=== PATIENT | female | born 1990 | race Caucasian/White ===

== ENCOUNTER 2017-01-21 14:10 | Emergency (ER) | payer SELFPAY ==
[2017-01-21 14:15] VITALS: BP 101/62
[2017-01-21] MEDS ORDERED: IPRATROPIUM/ALBUTEROL 0.5-2.5 MG/3 ML AMPUL NEB ONE (14:41)
[2017-01-21] MEDS ORDERED: METHYLPREDNISOLONE INJ 125 MG/2 ML SDV IM ONE (14:41)
--- NOTE | 2017-01-21 14:47 | ER Document Report ---
ED Respiratory Problem - General Chief Complaint: Asthma Exacerbation Stated Complaint: COUGH Time Seen by Provider: 01/21/17 14:41 Mode of Arrival: Ambulatory Information source: Patient Notes: 26-year-old female presents to ED for cough congestion mucus wheezing with a history of asthma. She states she has been using her albuterol inhaler with no relief. She states it hurts to breathe. She states she has been wheezing at home but no actual wheezing noted in the emergency room. Patient denies any fever. She states she is concerned for pneumonia because she has a history of pneumonia. TRAVEL OUTSIDE OF THE [place] IN LAST 30 DAYS: No - HPI Patient complains to provider of: Asthma, Cough, Hurts to breath Onset: Other - Several days Duration: Continuous Initiating Event: URI, Other - History of asthma Quality of pain: Other - Type Severity: Moderate Pain Level: 3 Cough: Nonproductive Sputum amount: None At home treatment: Bronchodilators Associated symptoms: Chest pain/discomfort, Cough, PND, Runny nose, Sinus pain/ pressure, Short of breath, Other - tightness in lungs Similar symptoms previously: Yes Recently seen / treated by doctor: No - Related Data Allergies/Adverse Reactions: No Known Allergies Allergy (Verified 01/21/17 14:11) Home Medications: Current Home Medications Albuterol Sulfate [Albuterol Sulfate 2.5mg/3 mL] 1 vial IH Q4 PRN 01/21/17 [ History] Albuterol Sulfate [Ventolin 0.042% Neb 1.25 mg/3 ml Ampul] 1 vial NEB Q4 PRN 06/04 [History] Past Medical History - General Information source: Patient - Social History Smoking Status: Current Every Day Smoker Cigarette use (# per day): Yes - 1/2 ppd Chew tobacco use (# tins/day): No Smoking Education Provided: Yes - less than 1 min Frequency of alcohol use: None Drug Abuse: None Lives with: Family Family History: Reviewed & Not Pertinent Patient has suicidal ideation: No Patient has homicidal ideation: No - Past Medical History Cardiac Medical History: Reports: None Pulmonary Medical History: Reports: Hx Asthma EENT Medical History: Reports: None Neurological Medical History: Reports: None Endocrine Medical History: Reports: None Renal/ Medical History: Reports: None Malignancy Medical History: Reports: None GI Medical History: Reports: None Musculoskeltal Medical History: Reports None Skin Medical History: Reports None Psychiatric Medical History: Reports: None Traumatic Medical History: Reports: None Infectious Medical History: Reports: None Surgical Hx: Negative Past Surgical History: Reports: None - Immunizations Immunizations up to date: Yes Hx Diphtheria, Pertussis, Tetanus Vaccination: Yes Review of Systems - Review of Systems Constitutional: No symptoms reported EENT: Nose discharge, Sinus discharge Cardiovascular: No symptoms reported Respiratory: Cough, Short of breath, Wheezing Gastrointestinal: No symptoms reported Genitourinary: No symptoms reported Female Genitourinary: No symptoms reported Musculoskeletal: No symptoms reported Skin: No symptoms reported Hematologic/Lymphatic: No symptoms reported Neurological/Psychological: No symptoms reported -: Yes All other systems reviewed and negative Physical Exam - Vital signs Vitals: Temp Pulse Resp BP Pulse Ox 98.9 F 90 13 101/62 96 01/21/17 14:14 01/21/17 14:14 01/21/17 14:14 01/21/17 14:14 01/21/17 14:14 Interpretation: Normal - General General appearance: Appears well, Alert - HEENT Head: Normocephalic, Atraumatic Eyes: Normal Pupils: PERRL Ears: Normal External canal: Normal Tympanic membrane: Normal Sinus: Normal Nasal: Swelling, Clear rhinorrhea Mouth/Lips: Normal Mucous membranes: Normal Pharynx: Post nasal drainage Neck: Normal - Respiratory Respiratory status: No respiratory distress Chest status: Nontender Breath sounds: Normal Chest palpation: Normal - Cardiovascular Rhythm: Regular Heart sounds: Normal auscultation Murmur: No - Abdominal Inspection: Normal Distension: No distension Bowel sounds: Normal Tenderness: Nontender Organomegaly: No organomegaly - Back Back: Normal, Nontender - Extremities General upper extremity: Normal inspection, Nontender, Normal color, Normal ROM , Normal temperature General lower extremity: Normal inspection, Nontender, Normal color, Normal ROM , Normal temperature, Normal weight bearing. No: Clarice's sign - Neurological Neuro grossly intact: Yes Cognition: Normal Orientation: AAOx4 Savage Coma Scale Eye Opening: Spontaneous Marty Coma Scale Verbal: Oriented Marty Coma Scale Motor: Obeys Commands Savage Coma Scale Total: 15 Speech: Normal Motor strength normal: LUE, RUE, LLE, RLE Sensory: Normal - Psychological Associated symptoms: Normal affect, Normal mood - Skin Skin Temperature: Warm Skin Moisture: Dry Skin Color: Normal Course - Vital Signs Vital signs: Temp Pulse Resp BP Pulse Ox 98.9 F 90 13 101/62 96 01/21/17 14:14 01/21/17 14:14 01/21/17 14:14 01/21/17 14:14 01/21/17 14:14 - Diagnostic Test Radiology reviewed: Image reviewed, Reports reviewed Discharge - Discharge Clinical Impression: URI (upper respiratory infection) Qualifiers: URI type: unspecified URI Qualified Code(s): J06.9 - Acute upper respiratory infection, unspecified Asthma attack Qualifiers: Asthma severity: mild Asthma persistence: intermittent Qualified Code(s): J45.21 - Mild intermittent asthma with (acute) exacerbation Condition: Stable Disposition: HOME, SELF-CARE Instructions: Family Physicians / Practices Additional Instructions: ASTHMA: You have been diagnosed as having asthma. This is a condition where there is episodic tightness in the bronchial tubes. Allergies, infections, and polluted or cold air may be contributing factors. Emergency treatment of a severe asthma attack may include adrenaline shots , or bronchodilator aerosol. You may feel lightheaded, have a decreased exercise tolerance and a rapid pulse for an hour or two. Rest and get plenty of fluids. Home treatment of asthma requires bronchodilator drugs. These can be administered by injection, inhalation, or by mouth. Antibiotics and corticosteroids may be required for some patients. You should avoid chemical fumes, dusts, pollens, and exercising in very cold or dry air. If you smoke, stop!! If you develop a fever, increased wheezing, chest pain, or severe shortness of breath, you should contact the doctor immediately. UPPER RESPIRATORY ILLNESS: You have a viral infection of the respiratory passages -- a "cold." This common infection causes nasal congestion, drainage, and often sore throat and cough. It is highly contagious. The disease usually lasts about 10 to 14 days. There is no "cure" for the viral infection -- it must run its course. If there is a complication, such as bacterial infection in the nose, sinuses, middle ear, or bronchial tubes, antibiotics may be required. The antibiotics won't affect the virus. Drink plenty of fluids. A humidifier may help. An expectorant medication or decongestant may make you more comfortable. Use acetaminophen or ibuprofen for fever or aches. See the doctor if fever persists over two days, if there is any significant worsening of your symptoms, or if you simply fail to improve as expected. STEROID MEDICATION: You have been given an injection of or oral medicine of the cortisone/ steroid class. This medication is used to control inflammation or allergy. Servando t is usually only given for a short period of time, until the acute process subsides. There are usually no side effects from short-term use of cortisone-like medications. Some persons feel an increased sense of well-being and are not sleepy at bedtime. Long-term use of cortisone medications is best avoided, unless required for a severe condition. If your condition does not remit, or relapses after the course of corticosteroid medication, you should consult your physician. INHALED BRONCHODILATORS: You have received treatment(s) of and/or prescription for an inhaled bronchodilator -- a medication which stimulates the airways in the lung to dilate. This improves the flow of air in asthma, bronchitis, and emphysema. These medicines have some similarity to adrenaline, and can cause similar side effects: shakiness, racing heart, and a sense of nervousness. These side effects decrease with time. Contact your doctor if these side effects are severe. Do not over-use the medicine. Too-frequent use of the inhaler may make it ineffective. Call your doctor if the inhaler is not controlling your symptoms at the prescribed doses. SMOKING: If you smoke, you should stop smoking. The tar and chemicals in cigarette smoke are harmful. Smoking has been shown to cause: emphysema chronic bronchitis lung cancer mouth and throat cancer stomach and pancreas cancer premature aging defects In addition, smoking increases ear and lung infections in children of smokers. USE OF ACETAMINOPHEN (Tylenol): Acetaminophen may be taken for pain relief or fever control. It's much safer than aspirin, offering a wider range of "safe" dosages. It is safe during . Some brand names are Tylenol, Panadol, Datril, Anacin 3, Tempra, and Liquiprin. Acetaminophen can be repeated every four hours. The following are maximum recommended dosages: WEIGHT Dose Drops Elixir Chewable( 80mg) (LBS.) drprs=droppers tsp=teaspoon 6 40 mg 0.4 ml (1/2) 6-11 80 mg 0.8 ml (full) tsp 1 tab 12-16 120 mg 1 1/2 drprs 3/4 tsp 1 1/2 tabs 17-23 160 mg 2 drprs 1 tsp 2 tabs 24-30 240 mg 3 drprs 1 1/2 tsp 3 tabs 30-35 320 mg 2 tsp 4 tabs 36-41 360 mg 2 1/4 tsp 4 1/2 tabs 42-47 400 mg 2 1/2 tsp 5 tabs 48-53 480 mg 3 tsp 6 tabs 54-59 520 mg 3 1/4 tsp 6 1/2 tabs 60-64 560 mg 3 1/2 tsp 7 tabs 65-70 600 mg 3 3/4 tsp 7 1/2 tabs 71-76 640 mg 4 tsp 8 tabs 77-82 720 mg 4 1/2 tsp 9 tabs 83-88 800 mg 5 tsp 10 tabs >89 pounds or adults 650 mg to 900 mg Acetaminophen can be repeated every four hours. Maximum dose not to exceed 4000 mg a day. These maximum recommended dosages are slightly higher than the dosages written on the product container, but these dosages are very safe and below the toxic dosage for acetaminophen. FOLLOW-UP CARE: If you have been referred to a physician for follow-up care, call the physician s office for an appointment as you were instructed or within the next two days. If you experience worsening or a significant change in your symptoms, notify the physician immediately or return to the Emergency Department at any time for re-evaluation. Prescriptions: Prednisone [Sterapred Ds] 1 pkg PO ASDIR PRN 12 Days [email or web address] PRN Reason: Forms: Smoking Cessation Education
--- NOTE | 2017-01-21 15:27 | RADIOLOGY REPORT (SQ) ---
EXAM DESCRIPTION: CHEST PA/LAT COMPLETED DATE/TIME: 01/21/2017 3:09 pm REASON FOR STUDY: cough congestion tightness to lungs COMPARISON: None. EXAM PARAMETERS: NUMBER OF VIEWS: two views TECHNIQUE: Digital Frontal and Lateral radiographic views of the chest acquired. RADIATION DOSE: NA LIMITATIONS: none FINDINGS: LUNGS AND PLEURA: No opacities, masses or pneumothorax. No pleural effusion. MEDIASTINUM AND HILAR STRUCTURES: No masses or contour abnormalities. HEART AND VASCULAR STRUCTURES: Heart normal size. No evidence for failure. BONES: Lower thoracic degenerative disc disease. HARDWARE: None in the chest. OTHER: No other significant finding. IMPRESSION: NO SIGNIFICANT RADIOGRAPHIC FINDING IN THE CHEST. TECHNICAL DOCUMENTATION: JOB ID: [id number] [employer]- All Rights Reserved
== END 2017-01-21 16:09 | disposition home or self-care (01) ==
LOC: ER 14:10
DX: J06.9 Acute upper respiratory infection, unspecified (principal); J45.21 Mild intermittent asthma with (acute) exacerbation; F17.210 Nicotine dependence, cigarettes, uncomplicated
CPT/HCPCS: 94640; 99284; 96372; 71020; J2930; J7620

== ENCOUNTER 2017-03-09 20:32 | Emergency (ER) | payer SELFPAY ==
[2017-03-09 21:09] VITALS: BP 110/76
== END 2017-03-09 21:59 | disposition left against medical advice (07) ==
LOC: ER 20:32
DX: Z53.21 Procedure and treatment not carried out due to patient leaving prior to being seen by health care provider (principal)

== ENCOUNTER 2017-07-08 19:17 | Emergency (ER) | payer SELFPAY | END 2017-07-08 21:20 | disposition left against medical advice (07) | LOC: ER 19:17 | DX: Z53.21 Procedure and treatment not carried out due to patient leaving prior to being seen by health care provider (principal) ==

== ENCOUNTER 2018-10-03 16:57 | Outpatient (CLI) | payer MEDICAID ==
[2018-10-03 17:37] LABS: APPEARANCE,URINE CLEAR; BILIRUBIN,URINE NEGATIVE (NEGATIVE); COLOR,URINE YELLOW; GLUCOSE, URINE NEGATIVE (NEGATIVE); KETONES,URINE NEGATIVE (NEGATIVE); LEUKOCYTE ESTERASE,URINE NEGATIVE (NEGATIVE); NITRITE,URINE NEGATIVE (NEGATIVE); PROTEIN,URINE NEGATIVE (NEGATIVE); URINE SPECIFIC GRAVITY 1.006; UROBILINOGEN,URINE NEGATIVE mg/dL (<2.0)
[2018-10-03 17:50] LABS: URINE AMPHETAMINES SCREEN NEGATIVE; URINE BARBITURATES SCREEN NEGATIVE; URINE BENZODIAZEPINES SCREEN NEGATIVE; URINE COCAINE SCREEN NEGATIVE; URINE MARIJUANA (THC) SCREEN NEGATIVE; URINE METHADONE SCREEN NEGATIVE; URINE PHENCYCLIDINE SCREEN NEGATIVE
== END 2018-10-03 17:44 | disposition home or self-care (01) ==
LOC: LC 16:57
PROVIDERS: ATTEND Obstetrics & Gynecology
PROC: 4A1HXCZ Monitoring of Products of Conception, Cardiac Rate, External Approach (ICD-10-PCS; principal; 2018-10-03)
DX: O47.02 False labor before 37 completed weeks of gestation, second trimester (principal); Z3A.23 23 weeks gestation of pregnancy
CPT/HCPCS: 80307; 81001

== ENCOUNTER 2018-12-12 08:53 | Outpatient (CLI) | payer MEDICAID ==
[~2018-12-12 08:53] MED LIST: FERRIC CARBOXYMALTOSE 750 MG in NORMAL SALINE 250 ML IV PRN; NORMAL SALINE 250 ML IV PRN
[2018-12-12 09:04] VITALS: BP 116/63
[2018-12-12] MEDS ORDERED: INFLUENZA QUAD (6MOS+) 2019-20 VAC 0.5 ML SYR IM ONE (10:00)
== END 2018-12-12 10:40 | disposition home or self-care (01) ==
LOC: II 08:53 → 5TH 08:54 → II 10:40
PROVIDERS: ATTEND Midwife
PROC: 3E033GC Introduction of Other Therapeutic Substance into Peripheral Vein, Percutaneous Approach (ICD-10-PCS; principal; 2018-12-12)
PROC: 3E02340 Introduction of Influenza Vaccine into Muscle, Percutaneous Approach (ICD-10-PCS; 2018-12-12)
DX: O99.019 Anemia complicating pregnancy, unspecified trimester (principal); Z23 Encounter for immunization
CPT/HCPCS: 90686; 96365; J7050; J1439; 90471; G0008

== ENCOUNTER 2018-12-19 09:21 | Outpatient (CLI) | payer MEDICAID ==
[2018-12-19 09:36] VITALS: BP 103/65
== END 2018-12-19 10:15 | disposition home or self-care (01) ==
LOC: 5TH 09:21 → II 09:21
PROVIDERS: ATTEND Midwife
PROC: 3E033GC Introduction of Other Therapeutic Substance into Peripheral Vein, Percutaneous Approach (ICD-10-PCS; principal; 2018-12-19)
DX: O99.019 Anemia complicating pregnancy, unspecified trimester (principal)
CPT/HCPCS: 96365; J7050; J1439

== ENCOUNTER 2019-01-07 14:57 | Outpatient (CLI) | payer MEDICAID | END 2019-01-07 15:41 | disposition home or self-care (01) | LOC: LC 14:57 | PROVIDERS: ATTEND Obstetrics & Gynecology | PROC: 4A1HXCZ Monitoring of Products of Conception, Cardiac Rate, External Approach (ICD-10-PCS; principal; 2019-01-07) | DX: Z34.93 Encounter for supervision of normal pregnancy, unspecified, third trimester (principal); Z3A.36 36 weeks gestation of pregnancy | CPT/HCPCS: 59025 ==

== ENCOUNTER 2019-01-11 20:56 | Outpatient (CLI) | payer MEDICAID ==
--- NOTE | 2019-01-11 20:59 | Non Stress Test Report ---
Non Stress Test Datetime Report Generated by CPN: 01/11/2019 20:58 DEMOGRAPHIC EGA NST: 36.6 VITAL SIGNS Temperature - NST: 97.5 Pulse - NST: 84 RESP - NST: 18 NBPSYS NST: 113 NBPDIA NST: 71 MONITORING Monitor Explained: Monitor Explained; Test Explained; Patient Verbalized Understanding Time on Monitor: 01/07/2019 15:06 Time off Monitor: 01/07/2019 15:38 NST Duration: 32 NST INTERVENTIONS NST Interventions: PO Hydration; Reposition Patient Physician Notified NST: C GAN, CNM BABY A: [id number] BABY A Movement : Present Contraction Frequency : NONE FHR Baseline : 135 Accelerations : 15X15 Decelerations : None Variability : Moderate 6-25bpm NST Review: Meets Criteria for Reactive NST NST Review and Verified By : GRACY JosephT Results: Reactive NST REPORT Report Trigger: Send Report
[2019-01-11 21:42] LABS: APPEARANCE,URINE CLOUDY; BILIRUBIN,URINE NEGATIVE (NEGATIVE); COLOR,URINE DARK YELLOW; GLUCOSE, URINE NEGATIVE (NEGATIVE); KETONES,URINE TRACE mg/dL (NEGATIVE); LEUKOCYTE ESTERASE,URINE MODERATE (NEGATIVE); NITRITE,URINE NEGATIVE (NEGATIVE); PROTEIN,URINE 100 mg/dL (NEGATIVE); URINE SPECIFIC GRAVITY 1.026
[2019-01-11 21:57] LABS: URINE AMPHETAMINES SCREEN NEGATIVE; URINE BARBITURATES SCREEN NEGATIVE; URINE BENZODIAZEPINES SCREEN NEGATIVE; URINE COCAINE SCREEN NEGATIVE; URINE MARIJUANA (THC) SCREEN NEGATIVE; URINE METHADONE SCREEN NEGATIVE; URINE PHENCYCLIDINE SCREEN NEGATIVE
[2019-01-11] MEDS ORDERED: ACETAMINOPHEN 325 MG TABLET ONE (22:53)
[2019-01-11] MEDS ORDERED: HYDROXYZINE PAMOATE 50 MG CAPSULE ONE (22:53)
[2019-01-11] MEDS ORDERED: HYDROXYZINE PAMOATE 50 MG CAPSULE PO ONE (23:01)
[2019-01-11] MEDS ORDERED: ACETAMINOPHEN 325 MG TABLET PO ONE (23:01)
--- NOTE | 2019-01-12 00:53 | Non Stress Test Report ---
Non Stress Test Datetime Report Generated by CPN: 01/12/2019 00:53 DEMOGRAPHIC EGA NST: 37.3 INDICATION Indication for Study (NST) Other: lc VITAL SIGNS Temperature - NST: 97.7 Pulse - NST: 83 RESP - NST: 16 NBPSYS NST: 100 NBPDIA NST: 52 MONITORING Monitor Explained: Monitor Explained; Test Explained; Patient Verbalized Understanding Time on Monitor: 01/11/2019 21:24 Time off Monitor: 01/11/2019 22:50 NST Duration: 86 NST INTERVENTIONS NST Interventions: PO Hydration BABY A Movement : Present Contraction Frequency : rare FHR Baseline : 140 Accelerations : 15X15 Decelerations : None Variability : Moderate 6-25bpm NST Review: Meets Criteria for Reactive NST NST Review and Verified By : Damian Purcell RN NST REPORT Report Trigger: Send Report
== END 2019-01-11 23:01 | disposition home or self-care (01) ==
LOC: LC 20:56
PROVIDERS: ATTEND Obstetrics & Gynecology
PROC: 4A1HXCZ Monitoring of Products of Conception, Cardiac Rate, External Approach (ICD-10-PCS; principal; 2019-01-11)
DX: O47.1 False labor at or after 37 completed weeks of gestation (principal); Z3A.37 37 weeks gestation of pregnancy
CPT/HCPCS: 59025; 81005; 80307; J3490 ×2

== ENCOUNTER 2019-01-16 11:05 | Inpatient (IN) | payer MEDICAID ==
--- NOTE | 2019-01-16 12:13 | Non Stress Test Report ---
Non Stress Test Datetime Report Generated by CPN: 01/16/2019 12:13 DEMOGRAPHIC EGA NST: 38.1 INDICATION Indication for Study (NST) Other: awaiting KOFFI MONITORING Monitor Explained: Monitor Explained; Test Explained; Patient Verbalized Understanding Time on Monitor: 01/16/2019 11:11 Time off Monitor: 01/16/2019 11:46 NST Duration: 35 NST INTERVENTIONS NST Interventions: PO Hydration; Reposition Patient (Annotations: Data stored by [facility] on behalf of user) Physician Notified NST: Dr younger BABY A: [id number] BABY A Movement : Present Contraction Frequency : occ FHR Baseline : 135 Accelerations : 15X15 Decelerations : None (Annotations: Data stored by [facility] on behalf of user) Variability : Moderate 6-25bpm NST Review: Meets Criteria for Reactive NST NST Review and Verified By : GRACY Sultana Results: Reactive NST REPORT Report Trigger: Send Report
--- NOTE | 2019-01-16 13:56 | RADIOLOGY REPORT (SQ) ---
EXAM DESCRIPTION: U/S OB LIMITED COMPLETED DATE/TIME: 01/16/2019 1:40 pm REASON FOR STUDY: KOFFI GDM COMPARISON: OB ultrasound 06/16/2018 TECHNIQUE: Limited transabdominal grayscale ultrasound for evaluation of specific requested obstetri janette parameters. LIMITATIONS: None. FINDINGS: CERVICAL LENGTH: Not visualized KOFFI: Total KOFFI 1.7 cm, oligohydramnios FHR: 139 beats per minute. PRESENTATION: Breech. PLACENTA: Posterior grade 2 ANATOMY: Not assessed OTHER: Estimated gestational age by multiple measurements today 38 weeks 0 days Estimated weight 3359 g weight percentile 57th percentile IMPRESSION: Oligohydramnios, largest pocket of amniotic fluid measures 1.7 cm Report called to Kofi DUBOSE on L&D Trimester of : Third trimester - 28 weeks to delivery. TECHNICAL DOCUMENTATION: JOB ID: [id number] [employer]- All Rights Reserved Reading location - IP/workstation name: [email or web address]
[2019-01-16] MEDS ORDERED: CITRIC ACID/SODIUM CITRATE ORAL SOLN 15 ML UDCUP ONE (14:36)
[2019-01-16] MEDS ORDERED: CEFAZOLIN INJ 1 GM VIAL ONE ×2 (14:44→15:13)
[2019-01-16 15:02] LABS: ABSOLUTE EOSINOPHILS # (AUTO) 0.1 10^3/uL (0.0-0.6); ABSOLUTE LYMPHOCYTES (AUTO) 1.7 10^3/uL (0.5-4.7); ABSOLUTE MONOCYTES (AUTO) 0.6 10^3/uL (0.1-1.4); ABSOLUTE NEUT (AUTO) 6.5 10^3/uL (1.7-8.2); BASOPHILS % (AUTO) 0.5 % (0-2); EOSINOPHILS % (AUTO) 1.1 % (0-6); HEMATOCRIT 36.5 % (36.0-47.0); HEMOGLOBIN 12.4 g/dL (12.0-15.5); LYMPHOCYTES % (AUTO) 19.2 % (13-45); MEAN CORPUSCULAR HEMOGLOBIN 28.9 pg (27.0-33.4); MEAN CORPUSCULAR HGB CONC 34.1 g/dL (32.0-36.0); MEAN CORPUSCULAR VOLUME 85 fl (80-97); MONOCYTES % (AUTO) 6.5 % (3-13); PLATELET COUNT 190 10^3/uL (150-450); RED BLOOD COUNT 4.31 10^6/uL (3.72-5.28); SEGMENTED NEUTROPHILS % (AUTO) 72.7 % (42-78); TOTAL CELLS COUNTED % (AUTO) 100 %; WHITE BLOOD COUNT 8.9 10^3/uL (4.0-10.5)
[2019-01-16] MEDS ORDERED: PHENYLEPHRINE HCL INJ/PF 10 MG/1 ML SDV ONE (15:06)
[2019-01-16] MEDS ORDERED: ONDANSETRON HCL INJ/PF 4 MG/2 ML SDV ONE (15:06)
[2019-01-16] MEDS ORDERED: PROPOFOL INJ 200 MG/20 ML VIAL IV ONE (15:06)
[2019-01-16] MEDS ORDERED: OXYTOCIN 10 UNIT/ML VIAL ONE (15:06)
--- NOTE | 2019-01-16 15:09 | Admission Physical ---
Datetime Report Generated by CPN: 01/16/2019 15:09 CURRENT ADMISSION Indication for Induction: Not Applicable Admit Impression : Term, Intrauterine ; Primary Section Admit Impression- Other: Breech, Oligohydramnios Admit Plan: Admit to Unit; Initiate Section Protocol ALLERGIES Medication Allergies: Yes Medication Allergies: dinoprostone (01/16/2019) Latex: No Latex Allergies Food Allergies: Soy and [place] Environmental Allergies: Cats OBSTETRICAL HISTORY EDC: 01/29/2019 00:00 : 3 Para: 2 Term: 2 : 0 SAB: 0 IAB: 0 Ectopic: 0 Livin Cesareans: 0 VBACs: 0 Multiple Births: 0 Gestational Diabetes: Yes Rh Sensitization: No Incompetent Cervix: No JEANNIE: No Infertility: No ART Treatment: No Uterine Anomaly: No IUGR: No Hx Previous C/S: No Macrosomia: No Hx Loss/Stillborn: No PIH: No Hx : No Placenta Previa/Abruption: No Depression/PP Depression: Yes PTL/PROM: No Post Hemorrhage: No Current Procedures: Ultrasound; NST Obstetrical History Comments: G1- 2009, IOL postdates G2- 2013, IOL high risk for blacking out and weigth gain, PP depresion G3- Current, KOFFI 1.7, breech, and C/S SEE RECORDS Alcohol: No Marijuana : No Cocaine: No Other Illicit Drugs: No Cigarettes: Former Smoker. [id number] MEDICAL HISTORY Diabetes: Yes Diabetes Type: Gestational Diabetes Blood Transfusion: No Pulmonary Disease (Asthma, TB): Yes Breast Disease: No Hypertension: No Saw Filer Surgery: No Heart Disease: No Hosp/Surgery: No Autoimmune Disorder: No Anesthetic Complications: No Kidney Disease: No Abnormal Pap Smear: Yes Neuro/Epilepsy: No Psychiatric Disorders: Yes Other Medical Diseases: No Hepatitis/Liver Disease: No Significant Family History: No Varicosities/Phlebitis: No Trauma/Violence : No Thyroid Dysfunction: No Medical History Comments: Suicidal thoughts, inpt treatment, Asthma, Colposcopy with laser, Childbirth INFECTIOUS HISTORY Gonorrhea: No Genital Herpes: No Chlamydia: No Tuberculosis: No Syphilis: No Hepatitis: No HIV/AIDS Exposure: No Rash or Viral Illness: No HPV: No PHYSICAL EXAM General: Normal HEENT: Normal Neurologic: Normal Thyroid: Normal Heart: Normal Lungs: Normal Breast: Normal Back: Normal Abdomen: Normal Genitourinary Exam: Normal Extremities: Normal DTRs: Normal Pelvic Type: Adequate Vital Signs: Reviewed; Within Normal Limits FETUS A Monitoring: External US FHR- Baseline: 120s Variability: Moderate 6-25bpm Accelerations: 15X15 FHR Category: Category I Admit Comment: Pt presented to L_D for an NST sec to Breech and nuchal cord seen on US. She underwent an KOFFI, which showed only (1) pocket, measuring 1 cm. She reports good etal movement. GBS Neg. She desires permanent sterilization. Pt undergo a Primary LTCS today. PLANS FOR LABOR AND DELIVERY Labor and Delivery: Other, Specify Pain Management: Spinal Feeding Preference: Breast Benefit of Breast Feed Discussed: Yes Circumcision: N/A INFORMED CONSENT Signature: with User ID: [email or web address]
[2019-01-16] MEDS ORDERED: SIMETHICONE 80 MG TAB.CHEW PO PRN (16:20)
[2019-01-16] MEDS ORDERED: ACETAMINOPHEN 325 MG TABLET PO PRN (16:20)
[2019-01-16] MEDS ORDERED: OXYCODONE-ACETAMINOPHEN 5-325 MG TABLET PO PRN (16:20)
[2019-01-16] MEDS ORDERED: PROMETHAZINE HCL INJ 25 MG/1 ML VIAL IV PRN (16:20)
[2019-01-16] MEDS ORDERED: OXYTOCIN/NORMAL SALINE 20 UNIT/1,000 ML RTUINJ IV PRN (16:20)
[2019-01-16] MEDS ORDERED: HYDROMORPHONE HCL INJ/PF 2 MG/ML AMPULE IV PRN (16:20)
[2019-01-16] MEDS ORDERED: DIPH/PERTUSS(ACELL)/TETANUS VAC/PF 0.5 ML SYR (>=10YO) IM PRN (16:20)
--- NOTE | 2019-01-16 16:28 | PDOC DELIVERY SUMMARY ---
Delivery Summary - Maternal Hx : III Hx Para: II Hx # Term Pregnancies: 2 Hx # Pregnancies: 0 Number of Living Children: 2 TERE: 01/30/19 Gestational Age: 38.1 Risk Factors: Oligohydramnios Fluids: Clear, Oligo Hydramnios - Delivery Labor: Not In Labor Presentation: Breech Heart Rate Monitoring: Externally Uterine Contraction Monitoring: External Support Person Present: Yes Location: OR : Primary Placenta Description: Normal-appearing Nuchal Cord: Yes - x 2 Delivery Quantitative Blood Loss (QBL): 820 - Medications Type of Anesthesia:: Spinal - Delivery Personnel MD: CHANI GARCIA
--- NOTE | 2019-01-16 16:28 | Operative Report ---
Operative Report DATE OF SURGERY: 01/16/19 PREOPERATIVE DIAGNOSIS: 1. Intrauterine at 38-1/7 weeks. 2. Oligoh ydramnios. 3. Breech position. 4. Nuchal cord x2 seen on ultrasound. 5. GBS negative. 6. Rh+. 7. Desires permanent sterilization. 8. Rubella Non- immune POSTOPERATIVE DIAGNOSIS: Same OPERATION: 1. Primary low transverse section Via Pfannenstiel. 2. Bilateral tubal occlusion with Filshie clips SURGEON: CHANI MIDDLETON ANESTHESIA: Spinal TISSUE REMOVED OR ALTERED: Placenta COMPLICATIONS: None QUANTITATIVE BLOOD LOSS: 820 INTRAOPERATIVE FINDINGS: Female with a footling breech presentation; nuchal cord x2; oligohydramnios; Apgars 8 at 1, 9 at 5; normal uterus, bilateral tubes and ovaries PROCEDURE: The patient was taken to the operating room where spinal anesthesia was obtained and found to be adequate. She was then prepped and draped in the normal sterile fashion and placed in the dorsal supine position with a leftward tilt. A Pfannenstiel skin incision was then made and carried through to the underlying layers of the fascia with the scalpel. The fascia was incised in the midline and the incision extended laterally with the Nicholas scissors. The superior aspect of the fascial incision was then grasped with Caryn clamps elevated and the underlying rectus muscles dissected off both bluntly and sharply. Attention was then turned to the inferior aspect of the fascial incision which in a similar fashion was grasped, tented up with Caryn clamps, and the rectus muscles dissected off both bluntly and sharply. The rectus muscles were then in the midline and the peritoneum was identified and entered both sharply and bluntly. The peritoneal incision was then extended superiorly and inferiorly with good visualization of the bladder. The bladder blade was inserted and the vesicouterine peritoneum identified grasped with [place] pickups and entered sharply with the Metzenbaum scissors. This incision was then extended laterally with the Metzenbaum scissors and a bladder flap created digitally. The bladder blade was then reinserted and the lower uterine segment incised in a transverse fashion with the scalpel. The uterine incision was then extended bluntly and sharply with the bandage scissors. The bladder blade was removed and the 's lower extremities, back and head were delivered from footling presentation, atraumatically. The cord doubly clamped and cut. The was handed off to waiting boat builder and repairer. The placenta was then delivered manually and the uterus exteriorized and cleared of all clots and debris. The uterine incision was then repaired with 0 Vicryl in a running locked fashion. 0-Chromic was used to obtain hemostasis via imbrication of the initial layer. The bladder flap was then repaired with 3-0 Vicryl in a running fashion. Attention was then turned to the request for permanent sterilization. The right fallopian tube was identified and held with a Rosman clamp. A Filshie clip was then placed in the midportion of the tube. Hemostasis was noted. The same procedure was performed on the left fallopian tube and hemostasis was also noted. The uterus was returned to the patient's abdomen and Interceed was placed overlying the uterine incision, as well as a piece placed vertically on the anterior surface of the uterus, to prevent adhesions. The gutters were cleared of all clots and debris. Peritoneum was then closed in a running fashion with 2-0 Vicryl. All operative sites were noted to be hemostatic. The fascia was reapproximated with 0 Vicryl in a running fashion from each lateral edge to the midline. The subcutaneous fat layer was then closed in an interrupted fashion with 3-0 vicryl. The skin was closed with 4-0 Monocryl in a running, subcuticular fashion. The patient tolerated the procedure well. Sponge, lap, needle and instrument counts are correct x 2. 2 g of Ancef were given prior to skin incision. The patient was taken to the recovery area awake and in stable condition.
[2019-01-16] MEDS ORDERED: ACETAMINOPHEN 1,000 MG/100 ML RTUPB IV PRN (16:57)
[2019-01-16] MEDS ORDERED: MORPHINE SULFATE 10 MG/ML INJ ONE (16:59)
[2019-01-16] MEDS ORDERED: ACETAMINOPHEN 1,000 MG/100 ML RTUPB IV ONE (17:02)
[2019-01-16] MEDS ORDERED: OXYTOCIN/NORMAL SALINE 20 UNIT/1,000 ML RTUINJ ONE (17:20)
[2019-01-16] MEDS ORDERED: FENTANYL CITRATE INJ/PF 100 MCG/2 ML AMPUL ONE (17:23)
[2019-01-16] MEDS: KETOROLAC TROMETHAMINE INJ/PF 30 MG/1 ML SDV IV SCH (19:11)
[2019-01-16] MEDS: DOCUSATE SODIUM 100 MG CAPSULE PO SCH (19:35)
[2019-01-16] MEDS: OXYCODONE-ACETAMINOPHEN 5-325 MG TABLET PO PRN (19:35)
[2019-01-16 22:11] LABS: APPEARANCE,URINE CLEAR; BILIRUBIN,URINE NEGATIVE (NEGATIVE); COLOR,URINE YELLOW; GLUCOSE, URINE NEGATIVE (NEGATIVE); KETONES,URINE 80 mg/dL (NEGATIVE); LEUKOCYTE ESTERASE,URINE NEGATIVE (NEGATIVE); NITRITE,URINE NEGATIVE (NEGATIVE); PROTEIN,URINE NEGATIVE (NEGATIVE); UROBILINOGEN,URINE NEGATIVE mg/dL (<2.0)
[2019-01-16 22:26] LABS: URINE AMPHETAMINES SCREEN NEGATIVE; URINE BARBITURATES SCREEN NEGATIVE; URINE BENZODIAZEPINES SCREEN NEGATIVE; URINE COCAINE SCREEN NEGATIVE; URINE MARIJUANA (THC) SCREEN NEGATIVE; URINE METHADONE SCREEN NEGATIVE; URINE PHENCYCLIDINE SCREEN NEGATIVE
[2019-01-17] MEDS: OXYCODONE-ACETAMINOPHEN 5-325 MG TABLET PO PRN ×5 (03:41→22:07)
[2019-01-17] MEDS: KETOROLAC TROMETHAMINE INJ/PF 30 MG/1 ML SDV IV SCH ×2 (03:42→09:08)
[2019-01-17 06:49] LABS: HEMATOCRIT 31.4 % (36.0-47.0); HEMOGLOBIN 10.7 g/dL (12.0-15.5); MEAN CORPUSCULAR HEMOGLOBIN 29.2 pg (27.0-33.4); MEAN CORPUSCULAR HGB CONC 34.2 g/dL (32.0-36.0); MEAN CORPUSCULAR VOLUME 85 fl (80-97); PLATELET COUNT 161 10^3/uL (150-450); RED BLOOD COUNT 3.68 10^6/uL (3.72-5.28); WHITE BLOOD COUNT 8.2 10^3/uL (4.0-10.5)
[2019-01-17] MEDS: PRENATAL VITAMIN W DHA CAPSULE PO SCH (09:09)
[2019-01-17] MEDS: DOCUSATE SODIUM 100 MG CAPSULE PO SCH ×2 (09:09→17:32)
--- NOTE | 2019-01-17 09:58 | PDOC PROGRESS REPORT ---
Subjective-OB Progress Note for:: 01/17/19 - POD #1, doing well, s/p Primary for breech presentation w/ oligohydramnios. O+, Rubella Immune, Physical Exam (OB) Vital Signs: Temp Pulse Resp BP Pulse Ox 98.2 F 76 16 99/60 L 98 01/17/19 07:10 01/17/19 07:10 01/17/19 07:10 01/17/19 07:10 01/17/19 07:10 Intake & Output 01/16/19 01/17/19 01/18/19 06:59 06:59 06:59 Intake Total 600 500 Output Total 700 Balance -100 500 Weight 80.4 kg - General General Appearance: Appears well, Alert In distress: None - PIH/Pre-Eclampsia Clonus: Negative Headache: Absent Epigastric Pain: No Visual Changes: No - Dressing Removed: No Incision: Dressing, Well Approximated - Bilateral Tubal Ligation Dressing Removed: No Site: Dressing - Lochia Lochia Amount: Scant < 10 ml Lochia Color: Rubra/Red - Abdomen Description: Soft Hernia Present: No Bowel Sounds: Normoactive Fundal Description: Firm, Midline Fundal Height: u/u - u/2 - Respiratory Respiratory Status: No respiratory distress Breath sounds: Clear - Abdominal Inspection: Normal Distension: No distension Tenderness: Nontender Abdominal Notes: +bowel sounds - Genitourinary Genitourinary Note: voiding - Extremities Upper extremity: Normal inspection Lower extremities: Normal inspection, Other - SCD hose applied - Neurological Cognition: Normal Orientation: AAOx4 - Psychological Associated symptoms: Normal affect, Normal mood - Skin Skin Temperature: Warm Skin Moisture: Dry Objective-Diagnostic Laboratory: 01/17/19 06:21 01/16/19 01/16/19 01/16/19 14:28 14:28 21:50 WBC 8.9 RBC 4.31 Hgb 12.4 Hct 36.5 MCV 85 MCH 28.9 MCHC 34.1 RDW 20.0 H Plt Count 190 Seg Neutrophils % 72.7 Urine Color YELLOW Urine Appearance CLEAR Urine pH 5.0 Ur Specific [place] 1.030 Urine Protein NEGATIVE Urine Glucose (UA) NEGATIVE Urine Ketones 80 H Urine Blood NEGATIVE Urine Nitrite NEGATIVE Ur Leukocyte Esterase NEGATIVE Blood Type O POSITIVE Antibody Screen NEGATIVE 01/17/19 06:21 WBC 8.2 RBC 3.68 L Hgb 10.7 L Hct 31.4 L MCV 85 MCH 29.2 MCHC 34.2 RDW 20.0 H Plt Count 161 Seg Neutrophils % Urine Color Urine Appearance Urine pH Ur Specific [place] Urine Protein Urine Glucose (UA) Urine Ketones Urine Blood Urine Nitrite Ur Leukocyte Esterase Blood Type Antibody Screen Assessment and Plan(PN) - Assessment and Plan (1) Breech presentation at Is this a current diagnosis for this admission?: Yes (2) Status post primary low transverse section Is this a current diagnosis for this admission?: Yes (3) Oligohydramnios Qualifiers: Trimester: third trimester Is this a current diagnosis for this admission?: Yes - Time Spent with Patient Time with patient: Less than 15 minutes Medications reviewed and adjusted accordingly: Yes - Disposition Anticipated Discharge: Home Within: within 48 hours
[2019-01-17] MEDS: IBUPROFEN 800 MG TABLET PO SCH ×2 (14:22→22:07)
[2019-01-18] MEDS: IBUPROFEN 800 MG TABLET PO SCH ×2 (03:19→09:20)
[2019-01-18 07:52] VITALS: BP 96/60
[2019-01-18] MEDS ORDERED: MEASLES,MUMPS&RUBELLA VACC/PF 0.5 ML VIAL SUBCUT ONE (09:00)
[2019-01-18] MEDS: OXYCODONE-ACETAMINOPHEN 5-325 MG TABLET PO PRN (09:20)
[2019-01-18] MEDS: PRENATAL VITAMIN W DHA CAPSULE PO SCH (09:21)
[2019-01-18] MEDS: DOCUSATE SODIUM 100 MG CAPSULE PO SCH (09:21)
--- NOTE | 2019-01-18 10:03 | PDOC DISCHARGE SUMMARY ---
Impression - Admit/DC Date/PCP Admission Date/Primary Care Provider: 01/16/19 14:00 MARISA COREY MD Discharge Date: 01/18/19 - POD#2, doing well, desires to go home today. , O+., Rubella Non-immune, , no complaints - Discharge Diagnosis (1) Breech presentation at Is this a current diagnosis for this admission?: Yes (2) Status post primary low transverse section Is this a current diagnosis for this admission?: Yes (3) Oligohydramnios Is this a current diagnosis for this admission?: Yes (4) Tubal ligation status Is this a current diagnosis for this admission?: Yes (5) Rubella nonimmune status, delivered, current hospitalization Is this a current diagnosis for this admission?: Yes (6) Gestational diabetes Is this a current diagnosis for this admission?: Yes (7) History of asthma Is this a current diagnosis for this admission?: Yes - Additional Information Resuscitation Status: Full Code Discharge Diet: As Tolerated, Regular Discharge Activity: Activity As Tolerated, No Driving, No Lifting Over 10 Pounds, Pelvic Rest Referrals: MARISA COREY MD [Primary Care Provider] - Prescriptions: Ibuprofen [Motrin 800 mg Tablet] 800 mg PO Q6A #60 tablet Oxycodone HCl/Acetaminophen [Percocet 5-325 mg Tablet] 1 tab PO Q4HP PRN #30 tablet PRN Reason: Pain Scale Of 4 Home Medications: Vit,Calc76/Iron/Folic [Prenatabs Rx Tablet] 1 tab PO DAILY 10/03/18 Albuterol Sulfate [Albuterol Sulfate Hfa] 2 puff PO Q4 PRN 01/07/19 Ascorbic Acid [Vitamin C 500 mg Tablet] 1 tab PO DAILY 01/07/19 Budesonide [Pulmicort 90 mcg Flexhaler] 2 puff PO Q4 PRN 01/07/19 Ergocalciferol (Vitamin D2) [Vitamin D2] 1 tab PO ASDIR 01/07/19 Ferrous Sulfate [Iron] 1 tab PO DAILY 01/07/19 Ibuprofen [Motrin 800 mg Tablet] 800 mg PO Q6A #60 tablet 01/18/19 Oxycodone HCl/Acetaminophen [Percocet 5-325 mg Tablet] 1 tab PO Q4HP PRN #30 tablet 01/18/19 HPI Admission Note: Breech w/ noted to have oligohydramnios, hx gestational diabetes this Procedures: NST, Ultrasound, Management of Obstetric Complications Intrapartum Procedure(s): : Low Cervical, Transverse, Tubal Ligation Hospital Course Hospital Course: Routine PP course Results Laboratory Results: WBC 8.2 10^3/uL (4.0-10.5) 01/17/19 06:21 RBC 3.68 10^6/uL (3.72-5.28) L 01/17/19 06:21 Hgb 10.7 g/dL (12.0-15.5) L 01/17/19 06:21 Hct 31.4 % (36.0-47.0) L 01/17/19 06:21 MCV 85 fl (80-97) 01/17/19 06:21 MCH 29.2 pg (27.0-33.4) 01/17/19 06:21 MCHC 34.2 g/dL (32.0-36.0) 01/17/19 06:21 RDW 20.0 % (11.5-14.0) H 01/17/19 06:21 Plt Count 161 10^3/uL (150-450) 01/17/19 06:21 Lymph % (Auto) 19.2 % (13-45) 01/16/19 14:28 [place] % (Auto) 6.5 % (3-13) 01/16/19 14:28 Eos % (Auto) 1.1 % (0-6) 01/16/19 14:28 Baso % (Auto) 0.5 % (0-2) 01/16/19 14:28 Absolute Neuts (auto) 6.5 10^3/uL (1.7-8.2) 01/16/19 14:28 Absolute Lymphs (auto) 1.7 10^3/uL (0.5-4.7) 01/16/19 14:28 Absolute Monos (auto) 0.6 10^3/uL (0.1-1.4) 01/16/19 14:28 Absolute Eos (auto) 0.1 10^3/uL (0.0-0.6) 01/16/19 14:28 Absolute Basos (auto) 0.0 10^3/uL (0.0-0.2) 01/16/19 14:28 Seg Neutrophils % 72.7 % (42-78) 01/16/19 14:28 Urine Color YELLOW 01/16/19 21:50 Urine Appearance CLEAR 01/16/19 21:50 Urine pH 5.0 (5.0-9.0) 01/16/19 21:50 Ur Specific [place] 1.030 01/16/19 21:50 Urine Protein NEGATIVE mg/dL (NEGATIVE) 01/16/19 21:50 Urine Glucose (UA) NEGATIVE mg/dL (NEGATIVE) 01/16/19 21:50 Urine Ketones 80 mg/dL (NEGATIVE) H 01/16/19 21:50 Urine Blood NEGATIVE (NEGATIVE) 01/16/19 21:50 Urine Nitrite NEGATIVE (NEGATIVE) 01/16/19 21:50 Urine Bilirubin NEGATIVE (NEGATIVE) 01/16/19 21:50 Urine Urobilinogen NEGATIVE mg/dL (<2.0) 01/16/19 21:50 Ur Leukocyte Esterase NEGATIVE (NEGATIVE) 01/16/19 21:50 Urine Ascorbic Acid NEGATIVE (NEGATIVE) 01/16/19 21:50 Urine Opiates Screen UNCONFIRMED POSITIVE 01/16/19 21:50 Urine Methadone Screen NEGATIVE 01/16/19 21:50 Ur Barbiturates Screen NEGATIVE 01/16/19 21:50 Ur Phencyclidine Scrn NEGATIVE 01/16/19 21:50 Ur Amphetamines Screen NEGATIVE 01/16/19 21:50 U Benzodiazepines Scrn NEGATIVE 01/16/19 21:50 Urine Cocaine Screen NEGATIVE 01/16/19 21:50 U Marijuana (THC) Screen NEGATIVE 01/16/19 21:50 Blood Type O POSITIVE 01/16/19 14:28 Antibody Screen NEGATIVE 01/16/19 14:28 Impressions: Obstetrics Ultrasound 01/16/19 00:00 IMPRESSION: Oligohydramnios, largest pocket of amniotic fluid measures 1.7 cm Report called to Kofi DUBOSE on L&D Trimester of : Third trimester - 28 weeks to delivery. Plan Health Concerns: Watch blood sugars since hx GDM Plan of Treatment: d/c to home, f/u with [facility] in one week for an incision check. Pt to check some random fasting and 2 hr post parandial blood sugars post Time Spent: Less than 30 Minutes
[2019-01-18 12:11] LABS: HSV-I IGG AB 22.1 index (0.00-0.90)
== END 2019-01-18 13:02 | disposition home or self-care (01) | DRG 784 ==
LOC: LC 11:05 → LR 14:00 → 2S 18:25
PROVIDERS: ADMIT Obstetrics & Gynecology; ATTEND Obstetrics & Gynecology
PROC: 10D00Z1 Extraction of Products of Conception, Low, Open Approach (ICD-10-PCS; principal; 2019-01-16)
PROC: 0UL70CZ Occlusion of Bilateral Fallopian Tubes with Extraluminal Device, Open Approach (ICD-10-PCS; 2019-01-16)
PROC: 3E0234Z Introduction of Serum, Toxoid and Vaccine into Muscle, Percutaneous Approach (ICD-10-PCS; 2019-01-18)
DX: O32.1XX0 Maternal care for breech presentation, not applicable or unspecified (principal); O41.03X0 Oligohydramnios, third trimester, not applicable or unspecified; O69.81X0 Labor and delivery complicated by cord around neck, without compression, not applicable or unspecified; O24.420 Gestational diabetes mellitus in childbirth, diet controlled; O99.52 Diseases of the respiratory system complicating childbirth; J45.909 Unspecified asthma, uncomplicated; Z3A.38 38 weeks gestation of pregnancy; Z37.0 Single live birth; Z30.2 Encounter for sterilization; Z23 Encounter for immunization
CPT/HCPCS: 1961; 36415; 76815; 80307; 81005; 85025; 85027; 86592; 86695; 86850; 86900; 86901; 88307; 90707; 94799; J0131; J0690; J1885; J2270; J2370; J2405; J2590; J2704; J3010; J3490

== ENCOUNTER 2019-09-26 12:16 | Emergency (ER) | payer MEDICAID, OTHER ==
[2019-09-26 12:21] VITALS: BP 111/76
[2019-09-26] MEDS ORDERED: IBUPROFEN 600 MG TABLET PO ONE (12:43)
[2019-09-26] MEDS ORDERED: HYDROCODONE/ACETAMINOPHEN 5-325 MG TABLET PO ONE (12:43)
--- NOTE | 2019-09-26 12:48 | ER Document Report ---
HPI - HPI Time Seen by Provider: 09/26/19 12:38 Pain Level: 4 Context: Patient is a 29-year-old female presents the emergency department with a burn to her right forearm. Patient states that she was getting water from a tea pot and ended up spilling on her right hand/forearm. Denies any break in the skin. - ROS Systems Reviewed and Negative: Yes All other systems reviewed and negative - CONSTITUTIONAL Constitutional: DENIES: Fever, Chills - CARDIOVASCULAR Cardiovascular: DENIES: Chest pain - RESPIRATORY Respiratory: DENIES: Trouble Breathing, Coughing - GASTROINTESTINAL Gastrointestinal: DENIES: Abdominal Pain - REPRODUCTIVE LMP: 09/26/2019 - MUSCULOSKELETAL Musculoskeletal: REPORTS: Extremity pain - Right hand and forearm - DERM Skin Color: Normal Skin Problems: Burn - Right hand and forearm Past Medical History - Social History Smoking Status: Current Every Day Smoker Chew tobacco use (# tins/day): No Frequency of alcohol use: None Drug Abuse: None Family History: Reviewed & Not Pertinent Patient has homicidal ideation: No Pulmonary Medical History: Reports: Hx Asthma Renal/ Medical History: Denies: Hx Peritoneal Dialysis Past Surgical History: Reports: Hx Section - x1, Hx Tubal Ligation - Immunizations Immunizations up to date: Yes Hx Diphtheria, Pertussis, Tetanus Vaccination: Yes Vertical Provider Document - CONSTITUTIONAL Agree With Documented VS: Yes Exam Limitations: No Limitations General Appearance: No Apparent Distress - INFECTION CONTROL TRAVEL OUTSIDE OF THE [place] IN LAST 30 DAYS: No - HEENT HEENT: Atraumatic, Normocephalic, PERRLA - NECK Neck: Normal Inspection - RESPIRATORY Respiratory: No Respiratory Distress Course - Re-evaluation Re-evalutation: 09/26/19 12:49 Patient's burn is consistent with a first-degree burn to the right hand and forearm. We will give the patient a dose of [place]. Advised her to use aloe vera to help with the burn. Capillary refill less than 3 seconds. Radial pulse 2+. No vascular compromise noted. No open skin noted. Follow-up precautions were given. Verbal discharge instructions were given to the patient. They verbalized understanding. They are stable for discharge. - Vital Signs Vital signs: Temp Pulse Resp BP Pulse Ox 98.1 F 106 H 20 111/76 100 09/26/19 12:20 09/26/19 12:20 09/26/19 12:20 09/26/19 12:20 09/26/19 12:20 Discharge - Discharge Clinical Impression: First degree burn Condition: Stable Disposition: HOME, SELF-CARE Instructions: [facility]) Additional Instructions: You were seen today in the emergency department for a burn to your right forearm. This is a first-degree burn. You can apply [id number] aloe vera cream to your arm. Take ibuprofen 600 mg and acetaminophen 1000 mg every 6 hours [id number] to help with your pain. If you need help sleeping, you can take 50 mg of Benadryl every 6 hours as needed. Follow-up with 1 of the clinics below or follow-up with your Workmen's Compensation. Forms: Return to Work Referrals: [facility] [Provider Group] - Follow up as needed [facility] [Provider Group] - Follow up as needed
[2019-09-26] MEDS ORDERED: ACETAMINOPHEN WITH CODEINE #3 TABLET PO ONE (12:59)
== END 2019-09-26 13:10 | disposition home or self-care (01) ==
LOC: ER 12:16
DX: T22.111A Burn of first degree of right forearm, initial encounter (principal); X12.XXXA Contact with other hot fluids, initial encounter; F17.200 Nicotine dependence, unspecified, uncomplicated; Z98.51 Tubal ligation status
CPT/HCPCS: 99283